=== PATIENT | male | born 1985 | race Caucasian/White ===

== ENCOUNTER 2019-02-07 10:50 | Emergency (ER) | payer MEDICAID ==
[~2019-02-07] VITALS: Ht 175.3 cm; Wt 86.2 kg
[2019-02-07 11:15] VITALS: BP 126/80; Ht 175.3 cm; Wt 86.2 kg
[2019-02-07 12:20] LABS: BASOPHIL % 0.2 % (0-2); RED CELL DISTRIBUTION WIDTH 13.1 % (11.5-14.5)
[2019-02-07 12:24] LABS: CALCIUM 9.3 mg/dL (8.5-10.1); CARBON DIOXIDE 27.2 mmol/L (21-32); CHLORIDE SERUM 103 mmol/L (98-107); CREATININE SERUM 0.8 mg/dL (0.7-1.3); GFR1 > 60 mL/min; GLUCOSE SERUM 99 mg/dL (74-106); POTASSIUM SERUM 3.7 mmol/L (3.5-5.1); SODIUM SERUM 141 mmol/L (136-145)
[2019-02-07 12:29] LABS: ALKALINE PHOSPHATASE 529 U/L (46-116); ALT/SGPT 122 U/L (16-63); AST/SGOT 35 U/L (15-37); BILIRUBIN TOTAL 0.17 mg/dL (0.20-1.00)
[2019-02-07 12:30] LABS: ALBUMIN 3.3 g/dL (3.4-5.0); TOTAL PROTEIN, SERUM 8.4 g/dL (6.4-8.2)
[2019-02-07 14:10] LABS: ERYTHROCYTE SED RATE 64 mm/hr (0-15)
[2019-02-07 14:14] LABS: PLATELET COUNT 514 x10^3mcL (130-400)
[2019-02-08 08:08] LABS: RAPID PLASMA REAGIN Reactive (Non Reactive)
== END 2019-02-07 12:38 | disposition left against medical advice (07) ==
LOC: ED 10:50
PROVIDERS: Emergency Medicine
DX: R21 Rash and other nonspecific skin eruption (principal); H92.02 Otalgia, left ear; J02.9 Acute pharyngitis, unspecified; Z88.0 Allergy status to penicillin; Z87.19 Personal history of other diseases of the digestive system
CPT/HCPCS: 36415; 87491; 87591

== ENCOUNTER 2019-02-21 15:05 | Emergency (ER) | payer MEDICAID ==
[~2019-02-21] VITALS: Ht 175.3 cm; Wt 85.7 kg
[2019-02-21 15:13] VITALS: Ht 175.3 cm; Wt 85.7 kg
[2019-02-21 16:06] VITALS: BP 115/73
== END 2019-02-21 16:16 | disposition home or self-care (01) ==
LOC: ED 15:05
DX: H10.31 Unspecified acute conjunctivitis, right eye (principal); A53.9 Syphilis, unspecified; Z88.0 Allergy status to penicillin
CPT/HCPCS: J0561; J0696

== ENCOUNTER 2019-05-14 16:15 | Emergency (ER) | payer MEDICAID ==
[~2019-05-14] VITALS: Ht 175.3 cm; Wt 82.1 kg
[2019-05-14 16:36] VITALS: BP 132/87; Ht 175.3 cm; Wt 82.1 kg
== END 2019-05-14 17:00 | disposition home or self-care (01) ==
LOC: ED 16:15
DX: L02.416 Cutaneous abscess of left lower limb (principal); B35.0 Tinea barbae and tinea capitis; L72.8 Other follicular cysts of the skin and subcutaneous tissue; F15.10 Other stimulant abuse, uncomplicated; F32.9 Major depressive disorder, single episode, unspecified; Z90.89 Acquired absence of other organs; Z88.0 Allergy status to penicillin
CPT/HCPCS: J2001

== ENCOUNTER 2019-05-17 10:41 | Emergency (ER) | payer MEDICAID ==
[~2019-05-17] VITALS: Ht 175.3 cm; Wt 82.6 kg
[2019-05-17 10:54] VITALS: Ht 175.3 cm; Wt 82.6 kg
[2019-05-17 12:03] VITALS: BP 115/63
== END 2019-05-17 13:03 | disposition home or self-care (01) ==
LOC: ED 10:41
DX: L02.416 Cutaneous abscess of left lower limb (principal); F32.9 Major depressive disorder, single episode, unspecified; Z48.01 Encounter for change or removal of surgical wound dressing; Z90.89 Acquired absence of other organs; Z88.0 Allergy status to penicillin

== ENCOUNTER 2019-05-28 11:24 | Emergency (ER) | payer MEDICAID ==
[~2019-05-28] VITALS: Ht 175.3 cm; Wt 83.5 kg
[2019-05-28 11:28] VITALS: BP 122/87; Ht 175.3 cm; Wt 83.5 kg
== END 2019-05-28 12:40 | disposition left against medical advice (07) ==
LOC: ED 11:24
DX: Z53.21 Procedure and treatment not carried out due to patient leaving prior to being seen by health care provider (principal)